=== PATIENT | male | born 1980 | race Caucasian/White ===

== ENCOUNTER 2018-05-08 22:55 | Emergency (ER) | payer SELFPAY ==
[~2018-05-08] VITALS: Ht 180.3 cm; Wt 77.1 kg
[2018-05-08 22:56] VITALS: BP_SYST 126
[2018-05-08 23:20] VITALS: BP_SYST 120
== END 2018-05-08 23:20 ==
LOC: SED 22:55
DX: Z02.89 Encounter for other administrative examinations (principal)
CPT/HCPCS: 99283